=== PATIENT | male | born 1930 | race Caucasian/White ===

== ENCOUNTER 2020-08-17 18:54 | Inpatient (IN) ==
[2020-08-17] MEDS ORDERED: HYDROmorphone 2 MG/1 ML VIAL IV STA (19:21)
[2020-08-17] MEDS ORDERED: ONDANSETRON 4 MG/2 ML VIAL IV STA (19:21)
[2020-08-17] MEDS ORDERED: SODIUM CHLORIDE 0.9% 500 ML IV STA (19:21)
[2020-08-17 19:41] LABS: Basophils % 0.5 % (0.0-0.8); Eosinophils % 0.6 % (0.00-10.9); Immature Granulocytes % 0.6 %; Immature Granulocytes Absolute 0.04 #; Lymphocytes # 0.3 10*3/uL (1.4-4.0); Lymphocytes % 5.3 % (21.2-54.2); Mean Corpuscular HGB Conc 33.3 GM/DL (32-36); Mean Corpuscular Volume 94.5 FL (87-102); Monocytes % 7.7 % (1.7-12.7); Neutrophils % 85.3 % (38.7-73.9); Platelet Count 157 T/CUMM (130-400); Red Blood Count 3.81 MC/CUMM (3.8-5.5); Red Cell Distribution Width 13.6 % (9.3-17.3); White Blood Count 6.4 T/CUMM (4-12)
[2020-08-17 19:52] LABS: INR 1.2; PT Patient Result 12.4 SECS (9.8-11.9)
[2020-08-17 20:11] LABS: Alanine Aminotransferase 12 U/L (16-61); Albumin 3.4 G/DL (3.4-5.0); Alkaline Phosphatase 104 U/L (45-117); Aspartate Amino Transferase 15 U/L (0-37); Bilirubin,Total < 0.39 MG/DL (0.2-1.0); Blood Urea Nitrogen 46 MG/DL (7-18); Calcium 8.7 MG/DL (8.5-10.1); Estimated Glom Filtration Rate 18 ML/MIN; Glucose 102 MG/DL (74-106); Osmolality,Calculated 279.2 MOS/KG (273-304); Total Protein 6.8 G/DL (6.4-8.3)
[2020-08-17] MEDS ORDERED: SODIUM CHLORIDE 0.9% 1,000 ML IV STA (20:14)
[2020-08-17] MEDS ORDERED: CALCIUM CHLORIDE 1,000 MG/10 ML SYRINGE IV STA (20:15)
[2020-08-17 21:32] LABS: Bilirubin,Urine Negative (Negative); Blood, Urine NEGATIVE (Negative); Glucose,Urine (UA) Negative (Negative); Hyaline Casts,Urine 10 /LPF (0-3); Ketones,Urine Negative (Negative); Mucus,Urine Occasional /LPF (Occasional); Nitrite,Urine Negative (Negative); Protein,Urine 30 MG/DL; Urine Appearance Clear (Clear); Urine Color Yellow (Yellow)
[2020-08-17] MEDS ORDERED: INSULIN REGULAR 10 UNIT, CALCIUM GLUCONATE 1,000 MG in DEXTROSE 10% 250 ML IV ONE (21:34)
[2020-08-17] MEDS ORDERED: ALUM/MAG/SIMETH/LIDO VISC 1:1 30 ML BOTTLE PO STA (21:36)
[2020-08-17] MEDS ORDERED: ONDANSETRON 4 MG/2 ML VIAL IV PRN (21:40)
[2020-08-17] MEDS ORDERED: DOCUSATE SODIUM 100 MG CAPSULE PO PRN (21:40)
[2020-08-17] MEDS ORDERED: ALUMINUM/MAGNES/SIMETH MAX STR 30 ML UDCUP PO PRN (21:46)
[2020-08-17] MEDS ORDERED: SODIUM CHLORIDE 0.9% 1,000 ML IV SCH (22:00)
[2020-08-17] MEDS: HYDROmorphone 2 MG/1 ML VIAL IV PRN (22:30)
[2020-08-18] MEDS ORDERED: SODIUM POLYSTYRENE SULFATE 15 GM/60 ML BOTTLE PO STA (00:06)
[2020-08-18 05:25] LABS: Basophils % 0.7 % (0.0-0.8); Eosinophils % 0.4 % (0.00-10.9); Hematocrit 31.3 VOL% (42.0-52.0); Hemoglobin 10.2 GM/DL (14.0-18.0); Immature Granulocytes % 0.5 %; Immature Granulocytes Absolute 0.03 #; Lymphocytes # 0.5 10*3/uL (1.4-4.0); Lymphocytes % 8.7 % (21.2-54.2); Mean Corpuscular HGB Conc 32.6 GM/DL (32-36); Mean Corpuscular Volume 96.6 FL (87-102); Monocytes % 10.5 % (1.7-12.7); Neutrophils % 79.2 % (38.7-73.9); Platelet Count 124 T/CUMM (130-400); Red Blood Count 3.24 MC/CUMM (3.8-5.5); Red Cell Distribution Width 13.7 % (9.3-17.3); White Blood Count 5.5 T/CUMM (4-12)
[2020-08-18 05:55] LABS: Calcium 8.6 MG/DL (8.5-10.1)
[2020-08-18] MEDS ORDERED: SODIUM POLYSTYRENE SULFATE 15 GM/60 ML BOTTLE PO ONE ×2 (06:30→09:24)
[2020-08-18] MEDS ORDERED: ceFAZolin 2,000 MG in PREMIX 1 EACH IV ONE (07:38)
[2020-08-18] MEDS: SODIUM BICARB INJ 50 MEQ in SODIUM CHLORIDE 0.45% 1,000 ML IV SCH ×2 (07:43→17:00)
[2020-08-18] MEDS: HYDROmorphone 2 MG/1 ML VIAL IV PRN (08:50)
[2020-08-18] MEDS: PANTOPRAZOLE 40 MG TABLET PO SCH (09:42)
[2020-08-18 14:04] LABS: Calcium 8.3 MG/DL (8.5-10.1); Osmolality,Calculated 287.4 MOS/KG (273-304)
[2020-08-18 17:16] LABS: Calcium 8.4 MG/DL (8.5-10.1); Osmolality,Calculated 287.4 MOS/KG (273-304)
[2020-08-18] MEDS: ACETAMINOPHEN 325 MG TABLET PO PRN (20:51)
[2020-08-19] MEDS: SODIUM BICARB INJ 50 MEQ in SODIUM CHLORIDE 0.45% 1,000 ML IV SCH (04:41)
[2020-08-19 05:24] LABS: Basophils % 0.8 % (0.0-0.8); Eosinophils # 0.1 10*3/uL (0.0-0.87); Eosinophils % 2.1 % (0.00-10.9); Hematocrit 27.2 VOL% (42.0-52.0); Immature Granulocytes % 0.3 %; Immature Granulocytes Absolute 0.01 #; Lymphocytes # 0.4 10*3/uL (1.4-4.0); Lymphocytes % 10.8 % (21.2-54.2); Mean Corpuscular HGB Conc 33.1 GM/DL (32-36); Mean Corpuscular Volume 96.1 FL (87-102); Mean Platelet Volume 9.5 FL (9.6-12.0); Monocytes % 10.8 % (1.7-12.7); Neutrophils % 75.2 % (38.7-73.9); Platelet Count 100 T/CUMM (130-400); Red Blood Count 2.83 MC/CUMM (3.8-5.5); Red Cell Distribution Width 13.5 % (9.3-17.3); White Blood Count 3.9 T/CUMM (4-12)
[2020-08-19 05:38] LABS: Calcium 7.9 MG/DL (8.5-10.1); Osmolality,Calculated 279.7 MOS/KG (273-304)
[2020-08-19 05:49] LABS: Hypochromasia 1+; Microcytosis 1+
[2020-08-19 05:50] LABS: Platelet Estimate Decreased
[2020-08-19] MEDS: SODIUM CHLORIDE 0.9% 1,000 ML IV SCH ×3 (10:26→18:00)
[2020-08-19] MEDS ORDERED: BACITRACIN OINT 0.9 GM PACK TOP ONE (10:49)
[2020-08-19] MEDS ORDERED: LIDOCAINE 1% 5 ML VIAL ONE ×2 (10:51→11:26)
[2020-08-19] MEDS ORDERED: BUPIVACAINE MPF 0.25% 30 ML VIAL ONE (10:52)
[2020-08-19] MEDS ORDERED: BUPIVACAINE SPINAL 0.75% 2 ML AMP SPINAL ONE (11:27)
[2020-08-19] MEDS ORDERED: MAGNESIUM HYDROXIDE SUSP 30 ML UDCUP PO PRN (11:55)
[2020-08-19] MEDS ORDERED: propofoL 200 MG/20 ML VIAL IV ONE (12:54)
[2020-08-19] MEDS ORDERED: SODIUM CHLORIDE 0.9% 100 ML IV ONE (12:55)
[2020-08-19] MEDS ORDERED: fentaNYL 100 MCG/2 ML VIAL ONE (12:55)
[2020-08-19] MEDS: PANTOPRAZOLE 40 MG TABLET PO SCH (16:07)
[2020-08-19] MEDS: ceFAZolin 2,000 MG in PREMIX 1 EACH IV SCH ×2 (16:07→23:44)
[2020-08-19] MEDS: ACETAMINOPHEN 325 MG TABLET PO PRN (18:17)
[2020-08-20] MEDS: SODIUM CHLORIDE 0.9% 1,000 ML IV SCH (03:00)
[2020-08-20 04:58] LABS: Basophils % 0.5 % (0.0-0.8); Eosinophils # 0.1 10*3/uL (0.0-0.87); Eosinophils % 1.5 % (0.00-10.9); Hematocrit 25.7 VOL% (42.0-52.0); Hemoglobin 8.3 GM/DL (14.0-18.0); Immature Granulocytes % 0.5 %; Immature Granulocytes Absolute 0.02 #; Lymphocytes # 0.4 10*3/uL (1.4-4.0); Mean Corpuscular HGB Conc 32.3 GM/DL (32-36); Mean Corpuscular Volume 95.5 FL (87-102); Mean Platelet Volume 9.4 FL (9.6-12.0); Monocytes % 12.9 % (1.7-12.7); Neutrophils % 75.6 % (38.7-73.9); Red Blood Count 2.69 MC/CUMM (3.8-5.5); Red Cell Distribution Width 13.4 % (9.3-17.3); White Blood Count 4.1 T/CUMM (4-12)
[2020-08-20 05:05] LABS: Platelet Count 98 T/CUMM (130-400)
[2020-08-20 05:19] LABS: Calcium 8.2 MG/DL (8.5-10.1); Osmolality,Calculated 280.4 MOS/KG (273-304)
[2020-08-20 05:20] LABS: Calcium 8.2 MG/DL (8.5-10.1); Osmolality,Calculated 282.3 MOS/KG (273-304)
[2020-08-20 05:24] LABS: Hypochromasia Slight; Platelet Estimate Decreased
[2020-08-20] MEDS: FONDAPARINUX 2.5 MG/0.5 ML SYRINGE SUBCUT SCH (05:55)
[2020-08-20] MEDS: ACETAMINOPHEN 325 MG TABLET PO PRN ×2 (06:00→20:34)
[2020-08-20] MEDS ORDERED: MAGNESIUM OXIDE 400 MG TABLET PO SCH (09:00)
[2020-08-20] MEDS: PANTOPRAZOLE 40 MG TABLET PO SCH (09:24)
[2020-08-20] MEDS: MAGNESIUM CHLORIDE 64 MG TABLET PO SCH ×2 (10:11→20:33)
[2020-08-20] MEDS ORDERED: SODIUM CHLORIDE 0.9% 1,000 ML IV ONE (14:00)
[2020-08-20] MEDS: ZINC OXIDE PASTE 113 GM TUBE TOP SCH (20:37)
[2020-08-21] MEDS: SODIUM CHLORIDE 0.9% 1,000 ML IV SCH ×4 (00:15→19:16)
[2020-08-21] MEDS: FONDAPARINUX 2.5 MG/0.5 ML SYRINGE SUBCUT SCH (05:29)
[2020-08-21 06:08] LABS: Basophils % 0.8 % (0.0-0.8); Eosinophils # 0.1 10*3/uL (0.0-0.87); Eosinophils % 1.8 % (0.00-10.9); Hematocrit 24.7 VOL% (42.0-52.0); Hemoglobin 8.2 GM/DL (14.0-18.0); Immature Granulocytes % 0.5 %; Immature Granulocytes Absolute 0.02 #; Lymphocytes # 0.4 10*3/uL (1.4-4.0); Lymphocytes % 9.8 % (21.2-54.2); Mean Corpuscular HGB Conc 33.2 GM/DL (32-36); Mean Platelet Volume 9.3 FL (9.6-12.0); Monocytes % 10.5 % (1.7-12.7); Neutrophils % 76.6 % (38.7-73.9); Platelet Count 104 T/CUMM (130-400); Red Cell Distribution Width 13.4 % (9.3-17.3); White Blood Count 3.9 T/CUMM (4-12)
[2020-08-21 06:28] LABS: Albumin 2.2 G/DL (3.4-5.0); Calcium 7.9 MG/DL (8.5-10.1); Osmolality,Calculated 285.1 MOS/KG (273-304)
[2020-08-21 06:44] LABS: Hypochromasia Slight
[2020-08-21 06:45] LABS: Microcytosis 1+; Platelet Estimate Decreased
[2020-08-21] MEDS ORDERED: SODIUM CHLORIDE 0.9% 1,000 ML IV PRN (07:29)
[2020-08-21] MEDS ORDERED: FUROSEMIDE 40 MG/4 ML VIAL IV PRN (07:29)
[2020-08-21] MEDS: MAGNESIUM CHLORIDE 64 MG TABLET PO SCH ×2 (09:13→21:46)
[2020-08-21] MEDS: MIDODRINE 5 MG TABLET PO SCH ×3 (09:13→21:46)
[2020-08-21] MEDS: PANTOPRAZOLE 40 MG TABLET PO SCH (09:13)
[2020-08-21] MEDS: ZINC OXIDE PASTE 113 GM TUBE TOP SCH ×2 (09:20→21:49)
[2020-08-22] MEDS: FONDAPARINUX 2.5 MG/0.5 ML SYRINGE SUBCUT SCH (05:09)
[2020-08-22] MEDS: SODIUM CHLORIDE 0.9% 1,000 ML IV SCH ×2 (05:12→19:21)
[2020-08-22 05:57] LABS: Basophils % 0.5 % (0.0-0.8); Eosinophils # 0.1 10*3/uL (0.0-0.87); Eosinophils % 2.3 % (0.00-10.9); Immature Granulocytes Absolute 0.06 #; Lymphocytes # 0.6 10*3/uL (1.4-4.0); Lymphocytes % 9.3 % (21.2-54.2); Mean Corpuscular HGB Conc 33.5 GM/DL (32-36); Mean Corpuscular Volume 92.3 FL (87-102); Mean Platelet Volume 9.5 FL (9.6-12.0); Monocytes % 11.6 % (1.7-12.7); Neutrophils % 75.3 % (38.7-73.9); Platelet Count 133 T/CUMM (130-400); Red Blood Count 3.36 MC/CUMM (3.8-5.5); Red Cell Distribution Width 14.5 % (9.3-17.3)
[2020-08-22 06:02] LABS: Hemoglobin 10.4 GM/DL (14.0-18.0)
[2020-08-22] MEDS: LEVOTHYROXINE 25 MCG TABLET PO SCH (06:56)
[2020-08-22 08:46] LABS: Basophils % 0.4 % (0.0-0.8); Eosinophils # 0.1 10*3/uL (0.0-0.87); Eosinophils % 1.9 % (0.00-10.9); Hematocrit 33.1 VOL% (42.0-52.0); Hemoglobin 11.2 GM/DL (14.0-18.0); Immature Granulocytes % 0.9 %; Immature Granulocytes Absolute 0.05 #; Lymphocytes # 0.4 10*3/uL (1.4-4.0); Lymphocytes % 8.3 % (21.2-54.2); Mean Corpuscular HGB Conc 33.8 GM/DL (32-36); Mean Corpuscular Volume 91.4 FL (87-102); Mean Platelet Volume 9.3 FL (9.6-12.0); Monocytes % 7.7 % (1.7-12.7); Neutrophils % 80.8 % (38.7-73.9); Platelet Count 127 T/CUMM (130-400); Red Blood Count 3.62 MC/CUMM (3.8-5.5); Red Cell Distribution Width 14.5 % (9.3-17.3); White Blood Count 5.3 T/CUMM (4-12)
[2020-08-22] MEDS: MIDODRINE 5 MG TABLET PO SCH ×3 (08:51→20:25)
[2020-08-22] MEDS: ZINC OXIDE PASTE 113 GM TUBE TOP SCH ×2 (08:52→20:24)
[2020-08-22] MEDS: MAGNESIUM CHLORIDE 64 MG TABLET PO SCH ×2 (08:52→20:24)
[2020-08-22] MEDS: PANTOPRAZOLE 40 MG TABLET PO SCH (08:52)
[2020-08-23] MEDS: FONDAPARINUX 2.5 MG/0.5 ML SYRINGE SUBCUT SCH (05:10)
[2020-08-23] MEDS: LEVOTHYROXINE 25 MCG TABLET PO SCH (05:10)
[2020-08-23 06:23] LABS: Basophils % 0.4 % (0.0-0.8); Eosinophils # 0.1 10*3/uL (0.0-0.87); Eosinophils % 2.1 % (0.00-10.9); Hematocrit 30.5 VOL% (42.0-52.0); Hemoglobin 10.3 GM/DL (14.0-18.0); Immature Granulocytes % 0.8 %; Immature Granulocytes Absolute 0.04 #; Lymphocytes # 0.5 10*3/uL (1.4-4.0); Lymphocytes % 9.4 % (21.2-54.2); Mean Corpuscular HGB Conc 33.8 GM/DL (32-36); Mean Corpuscular Volume 91.9 FL (87-102); Mean Platelet Volume 9.2 FL (9.6-12.0); Monocytes % 10.5 % (1.7-12.7); Neutrophils % 76.8 % (38.7-73.9); Platelet Count 138 T/CUMM (130-400); Red Blood Count 3.32 MC/CUMM (3.8-5.5); Red Cell Distribution Width 14.3 % (9.3-17.3); White Blood Count 4.9 T/CUMM (4-12)
[2020-08-23 06:42] LABS: Calcium 8.1 MG/DL (8.5-10.1); Osmolality,Calculated 276.7 MOS/KG (273-304)
[2020-08-23 06:43] LABS: Albumin 2.2 G/DL (3.4-5.0); Calcium 7.9 MG/DL (8.5-10.1); Osmolality,Calculated 282.3 MOS/KG (273-304)
[2020-08-23] MEDS: MIDODRINE 5 MG TABLET PO SCH ×3 (09:05→20:23)
[2020-08-23] MEDS: PANTOPRAZOLE 40 MG TABLET PO SCH (09:05)
[2020-08-23] MEDS: MAGNESIUM CHLORIDE 64 MG TABLET PO SCH ×2 (09:05→20:16)
[2020-08-23] MEDS: ZINC OXIDE PASTE 113 GM TUBE TOP SCH ×2 (09:06→20:18)
[2020-08-23] MEDS: SODIUM CHLORIDE 0.9% 1,000 ML IV SCH ×2 (19:21→22:58)
[2020-08-23] MEDS: ACETAMINOPHEN 325 MG TABLET PO PRN (20:16)
[2020-08-24] MEDS: FONDAPARINUX 2.5 MG/0.5 ML SYRINGE SUBCUT SCH (05:52)
[2020-08-24] MEDS: LEVOTHYROXINE 25 MCG TABLET PO SCH (05:52)
[2020-08-24 06:00] LABS: Basophils % 0.6 % (0.0-0.8); Eosinophils # 0.1 10*3/uL (0.0-0.87); Hematocrit 29.4 VOL% (42.0-52.0); Hemoglobin 9.7 GM/DL (14.0-18.0); Immature Granulocytes % 0.6 %; Immature Granulocytes Absolute 0.03 #; Lymphocytes # 0.5 10*3/uL (1.4-4.0); Lymphocytes % 9.7 % (21.2-54.2); Mean Corpuscular Volume 94.8 FL (87-102); Mean Platelet Volume 9.4 FL (9.6-12.0); Monocytes % 11.9 % (1.7-12.7); Neutrophils % 74.2 % (38.7-73.9); Platelet Count 136 T/CUMM (130-400); Red Cell Distribution Width 14.1 % (9.3-17.3); White Blood Count 4.6 T/CUMM (4-12)
[2020-08-24 06:25] LABS: Calcium 8.1 MG/DL (8.5-10.1); Osmolality,Calculated 282.3 MOS/KG (273-304)
[2020-08-24] MEDS: MIDODRINE 5 MG TABLET PO SCH (11:10)
[2020-08-24] MEDS: MAGNESIUM CHLORIDE 64 MG TABLET PO SCH (11:10)
[2020-08-24] MEDS: ZINC OXIDE PASTE 113 GM TUBE TOP SCH (11:11)
[2020-08-24] MEDS: PANTOPRAZOLE 40 MG TABLET PO SCH (11:11)
[2020-08-24 11:57] VITALS: BP 108/52
== END 2020-08-24 14:10 | disposition swing bed (61) | DRG 481 ==
LOC: EDUNIT# → EDBD → N.ED 18:54 → N.EDINP 20:53 → SUATTDRO 20:53 → N.3E 22:24
PROVIDERS: ADMIT Internal Medicine; ATTEND Hospitalist